=== PATIENT | male | born 1985 | race African-American/Black ===

== ENCOUNTER 2022-09-30 00:30 | Inpatient (IN) ==
[~2022-09-30 00:30] MED LIST: LIDOCAINE/EPINEPHRINE 1% 20 ML VIAL ONE
[2022-09-30] MEDS ORDERED: TRANEXAMIC ACID / 0.7% NACL 1000MG/100ML BAG IV ONE (00:38)
[2022-09-30] MEDS ORDERED: SODIUM CHLORIDE 0.9% 1000ML 1,000 ML IV ONE (00:41)
[2022-09-30] MEDS ORDERED: ONDANSETRON INJ 2 MG/ML 2 ML VIAL IV STA (00:55)
[2022-09-30] MEDS ORDERED: ceFAZolin 2000MG 2,000 MG/15 ML SYR IV STA (00:55)
[2022-09-30] MEDS ORDERED: ONDANSETRON INJ 2 MG/ML 2 ML VIAL ONE (00:56)
[2022-09-30 01:04] LABS: iSTAT Creatinine 1.3 mg/dl (0.6-1.3); iSTAT Hemoglobin 12.2 g/dl (14.0-18.0); iSTAT Ionized Calcium 1.05 mmol/l (1.12-1.32); iSTAT Potassium 4.3 mmol/L (3.3-5.0)
[2022-09-30 01:20] LABS: Hematocrit (blood only) 35.4 % (42.0-52.0); Hemoglobin 11.6 g/dl (14.0-18.0); Mean Corpuscular Hemoglobin 29.5 pg (25.0-34.0); Mean Corpuscular Hgb Conc 32.8 g/dL (32.0-36.0); Mean Corpuscular Volume 90.1 fL (80.0-100.0); Mean Platelet Volume 9.7 fL (9.4-12.4); Platelet Count 196 K/uL (130-400); RDW Coefficient of Variation 13.5 % (11.5-14.5); RDW Standard Deviation 44.4 fL (36.4-46.3); Red Blood Count 3.93 M/uL (4.70-6.10); White Blood Count 7.93 K/ul (4.8-10.8)
[2022-09-30] MEDS ORDERED: DIPHTHERIA/TETANUS/PERTUSSIS 0.5mL SYR/VIAL (Age 7+yrs) IM ONE (01:23)
--- NOTE | 2022-09-30 01:23 | Emergency Department Note ---
History of Present Illness General Chief complaint: Laceration/Cut (Suture/Dermabond) Stated complaint: Laceration L Radial Artery Time Seen by Provider: 09/30/22 00:41 History of Present Illness This 37-year-old male presents the ER complaining of laceration to his left wrist. This is a work-related injury. 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 Patient had copious arterial bleeding per EMS and a tourniquet was placed. Patient states he is healthy with no active medical problems. Unsure of last tetanus. No other injuries per patient. Home Medications Medication Instructions Recorded Confirmed Type No Known Home Medications 09/30/22 09/30/22 History Allergies Allergy/AdvReac Type Severity Reaction Status Date / Time No Known Allergies Allergy Verified 09/30/22 00:52 Past Med/Surg History Social History Smoking Status: Current every day smoker Tobacco Type: Cigarettes Feels Safe at Home: Yes Review of Systems A total of 10 systems reviewed and were otherwise negative Physical Exam Vital Signs Vital Signs - 24 hr 09/30/22 00:42 09/30/22 00:37 09/30/22 00:39 Temperature 36.6 C Temperature Source Oral Pulse Rate 88 64 60 Pulse Rate from SpO2 Sensor Respiratory Rate 15 22 Respiratory Effort / Characteristics Non-Labored Respiratory Depth Normal Blood Pressure 140/80 140/80 Blood Pressure Mean 100 100 Pulse Oximetry 100 93 Oxygen Delivery Method Room Air Room Air Sepsis Recent Fever Within 48 Hours No Sepsis New/Unexplained Change in Mental Status No Sepsis Action Taken by Nursing No Action Required 09/30/22 00:52 09/30/22 01:30 09/30/22 02:02 Temperature Temperature Source Pulse Rate 55 L 69 62 Pulse Rate from SpO2 Sensor Respiratory Rate 15 23 19 Respiratory Effort / Characteristics Respiratory Depth Blood Pressure 120/82 148/101 H 142/84 H Blood Pressure Mean 94 116 103 Pulse Oximetry 100 100 99 Oxygen Delivery Method Room Air Room Air Room Air Sepsis Recent Fever Within 48 Hours Sepsis New/Unexplained Change in Mental Status Sepsis Action Taken by Nursing 09/30/22 04:04 09/30/22 04:04 Temperature Temperature Source Pulse Rate Pulse Rate from SpO2 Sensor 79 Respiratory Rate Respiratory Effort / Characteristics Respiratory Depth Blood Pressure 121/72 Blood Pressure Mean 83 Pulse Oximetry 100 Oxygen Delivery Method Room Air Sepsis Recent Fever Within 48 Hours Sepsis New/Unexplained Change in Mental Status Sepsis Action Taken by Nursing VITALS: Vitals are noted on the nurse's note and reviewed by myself. Vital signs stable. GENERAL: Pleasant gentleman anxious appearing, in no acute distress, nondiaphoretic, well-developed well-nourished. SKIN: 1 cm laceration to the left wrist with arterial bleeding present and tourniquet was reapplied, the rest of the skin was without rashes, erythema, edema, or bruising. There is no tenting of the skin. Capillary reflex less than 2 seconds. HEAD: Normocephalic atraumatic. EARS: External auditory canals clear, EYES: Pupils equal round and reactive to light and accommodation. Conjunctivae without injection, sclerae without icterus. Extraocular movements intact. NOSE: Patent, turbinates without inflammation or discharge. MOUTH: Mucous membranes moist. Pharynx without erythema or exudate. Uvula midline. Airway patent. Tongue does not deviate. NECK: Supple without nuchal rigidity. No lymphadenopathy. No thyromegaly. Cervical spine is nontender. No JVD. HEART: Regular rate and rhythm LUNGS: Clear to auscultation bilaterally without wheezes, rales or rhonchi. No retractions or accessory muscle use. ABDOMEN: Positive bowel sounds x 4. Normal tympanic percussion. Soft, nontender, without masses or organomegaly. Kramer sign negative. No guarding or rebound tenderness. No CVA tenderness MUSCULOSKELETAL: No muscle atrophy, erythema, or edema noted. NEURO: Patient was alert and oriented to person place and time. Diminished sensation to the left hand as tourniquet is placed. Patient states he was able to feel his fingers prior to the tourniquet being placed by EMS and police. No focal neurological deficits. Course Administered Medications Discontinued Medications Diphtheria/Pertussis/Tetanus Vacc (Diphtheria/Tetanus/Pertussis 0.5ml Syr/Vial (Age 7+Yrs)) 0.5 ml IM .ONCE ONE Stop: 09/30/22 01:24 Last Admin: 09/30/22 01:49 Dose: 0.5 ml Documented By: LÓPEZ Fentanyl Citrate (Fentanyl Citrate Pf 100 Mcg/2 Ml Vial) 50 mcg IV NOW STA Stop: 09/30/22 01:29 Last Admin: 09/30/22 01:32 Dose: 50 mcg Documented By: LÓPEZ Sodium Chloride (Nss 1000ml) 1,000 mls @ 999 mls/hr IV .Q1H1M ONE Stop: 09/30/22 01:41 Last Infusion: 09/30/22 01:51 Dose: 0 mls/hr Documented By: Admin: 09/30/22 00:50 Dose: 999 mls/hr Documented By: LÓPEZ Cefazolin Sodium (Ancef 2000mg) 2,000 mg in 15 mls @ 3.75 mls/min IV NOW STA Stop: 09/30/22 00:58 Last Admin: 09/30/22 00:59 Dose: 3.75 mls/min Documented By: LÓPEZ Miscellaneous (Surgicel Absorb Hemostat 2in X 14in) 1 each TOP ONCE ONE Stop: 09/30/22 03:42 Last Admin: 09/30/22 03:42 Dose: 1 each Documented By: ANITHA Ondansetron HCl (Ondansetron Inj 2 Mg/Ml 2 Ml Vial) 4 mg IV NOW STA Stop: 09/30/22 00:56 Last Admin: 09/30/22 00:57 Dose: 4 mg Documented By: LÓPEZ Ondansetron HCl (Ondansetron Inj 2 Mg/Ml 2 Ml Vial) Confirm Administered Dose 4 mg .ROUTE .STK-MED ONE Stop: 09/30/22 00:57 Last Admin: 09/30/22 01:00 Dose: 4 mg Documented By: LÓPEZ Tranexamic Acid (Tranexamic Acid / 0.7% Nacl 1000mg/100ml Bag) Confirm Administered Dose 1,000 mg IV .STK-MED ONE Stop: 09/30/22 00:39 Last Admin: 09/30/22 00:38 Dose: 1,000 mg Documented By: LÓPEZ Critical Care Time Critical Care Time: Yes Total Critical Care Time: 35 I have personally spent 35 minutes of critical care time in the direct management of this patient. This includes bedside care, interpretation of diagnostic studies, and testing, discussion with consultants, patient, and family members, and other required patient management activities. This 35 minutes is in excess of all separately billable procedures. Medical Decision Making Medical Records Attestation: I reviewed the patient's medical records. Home Medications Current Medication List: was personally reviewed by me Laboratory Data Attestation: I reviewed the patient's lab results. 09/30/22 00:56 09/30/22 00:56 Lab Results 09/30/22 09/30/22 09/30/22 Range/Units 00:51 00:55 00:55 WBC (4.8-10.8) K/ul RBC (4.70-6.10) M/uL Hgb (14.0-18.0) g/dl POC Hgb 12.2 L (14.0-18.0) g/dl Hct (42.0-52.0) % POC Hct 36 L (42-52) % MCV (80.0-100.0) fL MCH (25.0-34.0) pg MCHC (32.0-36.0) g/dL RDW Std Deviation (36.4-46.3) fL RDW Coeff of Stephen (11.5-14.5) % Plt Count (130-400) K/uL MPV (9.4-12.4) fL Immature Gran % (Auto) % Neut % (Auto) % Lymph % (Auto) % Lucas % (Auto) % Eos % (Auto) % Baso % (Auto) % Neut # (Auto) (1.40-6.50) K/uL Lymph # (Auto) (1.2-3.4) K/uL Lucas # (Auto) (0.11-0.59) K/uL Eos # (Auto) (0-0.50) K/uL Baso # (Auto) (0-0.2) K/uL Immature Gran # (Auto) (0.01-0.20) K/uL RBC Morphology POC Sodium 140 (135-144) mmol/L Sodium (136-145) mmol/L POC Potassium 4.3 (3.3-5.0) mmol/L Potassium (3.5-5.1) mmol/L POC Chloride 106 (101-112) mmol/L Chloride (98-107) mmol/L Carbon Dioxide (21-32) mmol/L POC Total CO2 23 L (24-31) mmol/L Anion Gap (3-11) POC Anion Gap 17.0 (16-25) mmol/L POC BUN 21 H (7-18) mg/dl BUN (6-23) mg/dl Creatinine (0.6-1.4) mg/dl POC Creatinine 1.3 (0.6-1.3) mg/dl Est Cr Clr Drug Dosing ml/min Est GFR ( Amer) ml/min Est GFR (Non-Af Amer) ml/min BUN/Creatinine Ratio (10-20) Glucose (70-99(Fasting)) mg/dl POC Glucose (other) 111 H (70-99) mg/dl Calcium (8.6-10.3) mg/dl POC Ioniz Calcium Celina 1.05 L (1.12-1.32) mmol/l Total Bilirubin (0.2-1.0) mg/dl AST (13-39) U/L ALT (7-52) U/L Alkaline Phosphatase (34-104) U/L Total Protein (6.0-8.3) gm/dl Albumin (3.4-5.0) gm/dl Globulin (2.5-4.0) gm/dl Albumin/Globulin Ratio (0.9-2) SARS-CoV-2, RNA, NAAT NEGATIVE (NEGATIVE) Blood Type B Negative Antibody Screen NEGATIVE 09/30/22 09/30/22 Range/Units 00:56 00:56 WBC 7.93 (4.8-10.8) K/ul RBC 3.93 L (4.70-6.10) M/uL Hgb 11.6 L (14.0-18.0) g/dl POC Hgb (14.0-18.0) g/dl Hct 35.4 L (42.0-52.0) % POC Hct (42-52) % MCV 90.1 (80.0-100.0) fL MCH 29.5 (25.0-34.0) pg MCHC 32.8 (32.0-36.0) g/dL RDW Std Deviation 44.4 (36.4-46.3) fL RDW Coeff of Stephen 13.5 (11.5-14.5) % Plt Count 196 (130-400) K/uL MPV 9.7 (9.4-12.4) fL Immature Gran % (Auto) 0.3 % Neut % (Auto) 27.8 % Lymph % (Auto) 59.4 % Lucas % (Auto) 6.8 % Eos % (Auto) 4.3 % Baso % (Auto) 1.4 % Neut # (Auto) 2.21 (1.40-6.50) K/uL Lymph # (Auto) 4.71 H (1.2-3.4) K/uL Lucas # (Auto) 0.54 (0.11-0.59) K/uL Eos # (Auto) 0.34 (0-0.50) K/uL Baso # (Auto) 0.11 (0-0.2) K/uL Immature Gran # (Auto) 0.02 (0.01-0.20) K/uL RBC Morphology Unremarkable POC Sodium (135-144) mmol/L Sodium 139 (136-145) mmol/L POC Potassium (3.3-5.0) mmol/L Potassium 4.0 (3.5-5.1) mmol/L POC Chloride (101-112) mmol/L Chloride 108 H (98-107) mmol/L Carbon Dioxide 26 (21-32) mmol/L POC Total CO2 (24-31) mmol/L Anion Gap 5 (3-11) POC Anion Gap (16-25) mmol/L POC BUN (7-18) mg/dl BUN 19 (6-23) mg/dl Creatinine 1.30 (0.6-1.4) mg/dl POC Creatinine (0.6-1.3) mg/dl Est Cr Clr Drug Dosing 83.6 ml/min Est GFR ( Amer) 80.2 ml/min Est GFR (Non-Af Amer) 69.2 ml/min BUN/Creatinine Ratio 14.6 (10-20) Glucose 112 H (70-99(Fasting)) mg/dl POC Glucose (other) (70-99) mg/dl Calcium 7.9 L (8.6-10.3) mg/dl POC Ioniz Calcium Celina (1.12-1.32) mmol/l Total Bilirubin 0.3 (0.2-1.0) mg/dl AST 20 (13-39) U/L ALT 20 (7-52) U/L Alkaline Phosphatase 57 (34-104) U/L Total Protein 6.5 (6.0-8.3) gm/dl Albumin 3.6 (3.4-5.0) gm/dl Globulin 2.9 (2.5-4.0) gm/dl Albumin/Globulin Ratio 1.2 (0.9-2) SARS-CoV-2, RNA, NAAT (NEGATIVE) Blood Type Antibody Screen Imaging Data Attestation: I personally reviewed and interpreted this imaging study as follows: MDM Narrative Prior records reviewed and summarized as above. Triage Nursing notes reviewed. Additional history obtained from EMS. The patient's history was concerning for laceration to left wrist Differential diagnosis: Etiologies such as vascular injury, tendon injury, nerve injury, laceration, as well as others were entertained.. Physical examination: The physical examination was consistent with vascular injury to the left radial artery ER treatment provided: Tourniquet was replaced, 2 lines were placed, i-STAT H&H was ordered, patient was consented to blood and type and screen was ordered if warranted Tetanus is given. TXA was ordered. Ancef was ordered. IV fluids were given On reassessment the patient felt better. Diagnostics interpreted by me: The labs Independently Interpreted by myself revealed mild anemia, no worrisome leukocytosis, negative COVID Imaging studies: Wrist x-ray with no foreign body or fracture per my independent interpretation Consultation: A consultation was placed with the vascular specialist, Dr. Delaney. The case was discussed and diagnostics were reviewed. The patient was evaluated in the ER for further treatment. This appears to be isolated left radial artery injury. Tourniquet was placed. This was initially removed and radial pulse was present. Bright red blood was profusely coming out and tourniquet was replaced. Vascular was consulted and took the patient to the OR. Labs and diagnostics were independent interpreted by myself. Patient was taken to the OR by vascular for further evaluation and treatment in stable condition.By the evaluation outlined above emergent etiologies such as fracture as well as others were deemed relatively unlikely. The pt informed about the findings as listed above. All questions were answered and pleased with the treatment. The chart was completed utilizing [employer] Speech voice recognition software. Grammatical errors, random word insertions, pronoun errors, and incomplete sentences are an occassional consequence of this system due to software limitations, ambient noise, and hardware issues. Any formal questions or concerns about the content, text, or information contained within the body of this dictation should be directly addressed to the physician administrative assistant office manager for clarification. Impression & Plan Laceration of radial artery at left forearm level Discharge Plan Visit Data Chief Complaint: Laceration/Cut (Suture/Dermabond) Stated Complaint: Laceration L Radial Artery ED Provider: Hakeem Castorena ED Midlevel Provider: Velma Avila Discharge Problem: Laceration of radial artery at left forearm level Patient Disposition: Admitted As Inpatient Condition: Good Discharge Instructions Interventions: ED Discharge Assessment Last Done: 09/30/22 02:28 Laceration of radial artery at left forearm level Qualifiers: Encounter type: initial encounter Qualified Code(s): S55.112A - Laceration of radial artery at forearm level, left arm, initial encounter
[2022-09-30] MEDS ORDERED: fentaNYL citrate PF 100 MCG/2 ML VIAL IV STA (01:28)
[2022-09-30 01:30] LABS: Albumin Globulin Ratio 1.2 (0.9-2); Albumin Level 3.6 gm/dl (3.4-5.0); BUN Creatinine Ratio 14.6 (10-20); Bilirubin,Total 0.3 mg/dl (0.2-1.0); Calcium 7.9 mg/dl (8.6-10.3); Creatinine Clr Calc Pharmacy 83.6 ml/min; Est GFR (African American) 80.2 ml/min; Est GFR (Non-African American) 69.2 ml/min; Globulin 2.9 gm/dl (2.5-4.0); Total Protein 6.5 gm/dl (6.0-8.3)
--- NOTE | 2022-09-30 01:44 | History & Physical Report ---
Date of Service September 30, 2022 Assessment & Plan (1) Laceration of radial artery at left forearm level: Plan: Patient may have a laceration of his radial artery. Would recommend exploration due to the amount of bright red pulsatile bleeding at the scene. I have discussed the risks options and benefits of the procedure with the patient. The patient understands the risks options and benefits and agrees to the procedure. History of Present Illness Chief Complaint: Laceration left wrist Primary Care Provider: NO PCP Patient is a 37yo male who suffered a left wrist laceration with a box toe stitcher while at work. He had profuse bleeding which was said to be pulsatile at the scene. At present he has a tourniquet in place. He is usually healthy. Allergies Allergy/AdvReac Type Severity Reaction Status Date / Time No Known Allergies Allergy Verified 09/30/22 00:52 Home Medications Medication Instructions Recorded Confirmed Type No Known Home Medications 09/30/22 09/30/22 History Past Med/Surg History Social History Smoking Status: Current every day smoker Tobacco Type: Cigarettes Feels Safe at Home: Yes Review of Systems All systems reviewed & are unremarkable except as noted in HPI & below Physical Exam Constitutional: WD/WN, vitals as above Respiratory: normal respiratory effort, lungs clear to auscultation Cardiovascular: RRR, no murmur, no edema Vessels: normal peripheral pulses (except left wrist which has a tourniquet on.) left hand pale and cool to touch Gastrointestinal (Abdomen): normal bowel sounds, soft, nontender, no hepatosplenomegaly Musculoskeletal: all extremities are normal except the left which has a tourniquet on. Skin: pressure dressing on left wrist Neurologic: CN's II-XI intact bilaterally and moves all extremities left hand numbness and inability to move fingers Psychiatric: Orientation: alert and oriented x 3 Results & Data Vital Signs (Past 12 Hours) Vital Signs Temp Pulse Resp BP Pulse Ox O2 Del Method 09/30/22 00:52 55 L 15 120/82 100 Room Air 09/30/22 00:39 60 22 140/80 93 Room Air 09/30/22 00:37 64 09/30/22 00:42 36.6 C 88 15 140/80 100 Room Air
[2022-09-30 01:58] LABS: Basophils # (auto) 0.11 K/uL (0-0.2); Basophils % (auto) 1.4 %; Eosinophils # (auto) 0.34 K/uL (0-0.50); Eosinophils % (auto) 4.3 %; Immature Granulocytes # (auto) 0.02 K/uL (0.01-0.20); Immature Granulocytes % (auto) 0.3 %; Lymphocytes # (auto) 4.71 K/uL (1.2-3.4); Lymphocytes % (auto) 59.4 %; Monocytes # (auto) 0.54 K/uL (0.11-0.59); Monocytes % (auto) 6.8 %; Neutrophils # (auto) 2.21 K/uL (1.40-6.50); Neutrophils % (auto) 27.8 %; RBC Morphology Unremarkable
[2022-09-30] MEDS ORDERED: fentaNYL citrate PF 100 MCG/2 ML VIAL ONE (02:17)
[2022-09-30] MEDS ORDERED: PROPOFOL IV EMULSION 10 MG/ML 20 ML VIAL IV ONE (02:17)
[2022-09-30] MEDS ORDERED: MIDAZOLAM HCL 1 MG/ML 2ML VIAL ONE (02:17)
[2022-09-30] MEDS ORDERED: LIDOCAINE 2% MPF LOCAL 5 ML VIAL ONE (02:18)
--- NOTE | 2022-09-30 02:28 | Anesthesiology Consultation ---
Date of Service September 30, 2022 Assessment & Plan Chart Review Chart Review: Acceptable Risk for Surgery Consults Requested none History Surgery Operation Date: 09/30/22 02:30 Proposed Procedures p Left Radial Artery Exploration - Yasir Delaney MD Height/Weight Height: 5 ft 9 in Weight: 85.8 kg Allergies Allergy/AdvReac Type Severity Reaction Status Date / Time No Known Allergies Allergy Verified 09/30/22 00:52 Medications Home Medications Medication Instructions Recorded Confirmed Last Taken No Known Home Medications 09/30/22 09/30/22 Unknown Social History Smoking Status: Current every day smoker Physical Exam Vital Signs Last Vital Signs Temp 36.6 C 09/30/22 00:42 Pulse 62 09/30/22 02:02 Resp 19 09/30/22 02:02 BP 142/84 H 09/30/22 02:02 Pulse Ox 99 09/30/22 02:02 O2 Del Method Room Air 09/30/22 02:02 Testing Laboratory Results 09/30/22 00:56 09/30/22 00:56 Blood Type B Negative 09/30/22 00:55 Antibody Screen NEGATIVE 09/30/22 00:55 09/30/22 00:51 POC Glucose (other) 111 H
[2022-09-30] MEDS ORDERED: HYDROmorphone INJ 2 MG/ML SYR/VIAL IV PRN (02:37)
[2022-09-30] MEDS ORDERED: ePHEDrine sulfate 50 MG/ML AMP IV PRN (02:37)
[2022-09-30] MEDS ORDERED: ONDANSETRON INJ 2 MG/ML 2 ML VIAL IV PRN ×2 (02:37→05:26)
[2022-09-30] MEDS ORDERED: ATROPINE SULFATE 0.1 MG/ML 10ML SYR IV PRN (02:37)
[2022-09-30] MEDS ORDERED: fentaNYL citrate PF 100 MCG/2 ML VIAL IV PRN (02:37)
[2022-09-30] MEDS ORDERED: PROMETHAZINE HCL 12.5 MG in SODIUM CHLORIDE 0.9% 50 ML IV PRN (02:37)
[2022-09-30] MEDS ORDERED: SURGICEL ABSORB HEMOSTAT 2IN X 14IN TOP ONE (03:41)
[2022-09-30] MEDS ORDERED: GLYCOPYRROLATE 0.2 MG/ML VIAL ONE (03:42)
[2022-09-30] MEDS ORDERED: NEOSTIGMINE METHYLSULFATE 1 MG/ML 10ML VIAL ONE (03:42)
--- NOTE | 2022-09-30 03:57 | Operative Report ---
Post Operative Report Pre & Post Diagnosis Operation Date: 09/30/22 02:30 Pre-Op Diagnosis: Laceration Left Radial Artery Post-Op Diagnosis: Laceration Left Radial Artery I identified the patient and participated in the time-out.: Yes Procedure Operation Date: 09/30/22 02:30 Actual Procedures p Primary Repair Left Radial Artery(Left) - Yasir Delaney MD Surgeon Yasir Delaney MD Nurse Midwife/Clinical Instructor none Estimated Blood Loss 20 Findings Consistent with Post-Op Diagnosis Specimens none Anesthesia Type General Complications none Disposition Accompanied Patient To Recovery: No Disposition: Recovery Room Indications This is a 37-year-old healthy gentleman who 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 It was thought that he lacerated his radial artery. Exploration was recommended with repair of the artery if needed. I have discussed the risks options and benefits of the procedure with the patient. The patient understands the risks options and benefits and agrees to the procedure. Description of Procedure The patient was taken the operating placed supine position. After general anesthesia was accomplished the left arm was prepped and draped in a sterile manner. After he was asleep we did release the tourniquet and there was pulsatile profuse bleeding. A tourniquet was reapplied. The patient was identified and a timeout was performed. The box worker laceration was small and longitudinal. It was extended upward and downward right over the radial artery. Radial artery was exposed. There is a through and through laceration through the center of the radial artery. It was a very clean cut approximately 3 mm in length. Both the anterior and posterior surface of the artery were repaired with interrupted 7-0 Prolene sutures. There was good flow noted after the repair. Good Doppler signals were heard on both sides of the repair of the artery. There is also an excellent palmar arch Doppler signal. The wound was inspected. Adequate hemostasis was noted. The wound was then closed with running 3-0 Vicryl suture for the subcutaneous layer and a running 4-0 subcuticular suture for the skin edges. Dermabond was used for dressing.The patient left the operation room in satisfactory condition and tolerated the procedure well. All needle and sponge counts were correct at the end of the procedure. I attest to the content of the Intraoperative Record and any orders documented therein. Any exceptions are noted below.
--- NOTE | 2022-09-30 04:18 | Anesthesiology Progress Note ---
Date of Service September 30, 2022 Anesthesia Post Procedure Vital Signs Vital Signs: Temp Pulse Resp BP Pulse Ox O2 Del Method 09/30/22 04:15 100 09/30/22 04:15 115/85 09/30/22 04:10 36.3 C L 64 15 100 Room Air 09/30/22 04:10 116/69 09/30/22 04:04 100 Room Air 09/30/22 04:04 121/72 09/30/22 02:02 62 19 142/84 H 99 Room Air 09/30/22 01:30 69 23 148/101 H 100 Room Air 09/30/22 00:52 55 L 15 120/82 100 Room Air 09/30/22 00:39 60 22 140/80 93 Room Air 09/30/22 00:37 64 09/30/22 00:42 36.6 C 88 15 140/80 100 Room Air Transfer of Care Handoff Completed per policy Notes Mental Status: alert / awake / arousable and participated in evaluation Patient Amnestic to Procedure: Yes Nausea / Vomiting: adequately controlled Pain: adequately controlled Airway Patency, RR, SpO2: stable & adequate BP & HR: stable & adequate Hydration State: stable & adequate Anesthetic Complications: no major complications apparent
[2022-09-30] MEDS ORDERED: traMADol HCL 50 MG TABLET PO PRN (05:26)
[2022-09-30] MEDS ORDERED: LACTATED RINGER'S 1,000 ML IV SCH (05:26)
[2022-09-30] MEDS ORDERED: Nursing to Pharmacy Communication SCH (06:00)
--- NOTE | 2022-09-30 07:02 | XRay Report ---
XR wrist LT 2V HISTORY: 37 years-old Male radial artery injury acute left wrist pain status post trauma COMPARISON: None TECHNIQUE: 2 views of the left wrist FINDINGS: Mild to moderate soft tissue swelling of the distal forearm with gauze material noted along the volar surface. No acute fracture, dislocation, significant osteoarthritis, osseous erosion or opaque forei gn body. IMPRESSION: Soft tissue injury without acute osseous abnormality. ACT 112: Negative or not required by law. The above report was generated using voice recognition software. It may contain grammatical, syntax o r spelling errors. Electronically signed by: Fortunato Echavarria M.D. 09/30/2022 7:00 AM
[2022-09-30] MEDS ORDERED: ceFAZolin 2000MG 2,000 MG/15 ML SYR IV SCH (08:00)
--- NOTE | 2022-09-30 10:11 | Surgery Progress Note ---
Date of Service September 30, 2022 Assessment & Plan (1) Laceration of radial artery at left forearm level: Plan: Pt underwent primary repair of L radial artery. No further sign of bleeding. Unfortunately, pt had a tourniquet on his forearm for a few hrs prior to und ergoing surgery and now has a soft tissue injury as well which is painful. Mild soft edema is noted to forearm. No sign of compartment syndrome, and distal pulses remain intact. Pt stable for d/c and will be reeval in office in 2 weeks. 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 Pt states his L forearm is very sore, but more from the location of the tourniquet than the incision. States the feeling has returned to his hand and fingers and no problems moving them. Admits some swelling and bruising to L forearm from tourniquet location to wrist. Review of Systems Review of Systems: All systems reviewed & are unremarkable except as noted in HPI & below Physical Exam Constitutional: WD/WN, vitals as above Respiratory: normal respiratory effort, lungs clear to auscultation Cardiovascular: RRR, no murmur, no edema Vessels: brachial pulses present, radial pulses present and ulnar pulses present Extremities: normal capillary refill and + edema (mild soft edema/ecchymosis to L forearm) Gastrointestinal (Abdomen): normal bowel sounds, soft, nontender, no hepatosplenomegaly Skin: L wrist incision C/D/I, +tender Neurologic: CN's II-XI intact bilaterally and moves all extremities Psychiatric: Orientation: alert and oriented x 3 Results & Data Vital Signs (Past 12 Hours) Vital Signs Temp Pulse Pulse Pulse Resp BP BP 09/30/22 08:21 79 18 117/87 09/30/22 07:17 36.6 C 55 L 14 128/80 09/30/22 06:16 36.8 C 62 17 122/77 09/30/22 05:45 36.6 C 61 18 130/83 09/30/22 05:25 36.7 C 63 18 128/77 09/30/22 05:00 48 L 14 09/30/22 05:00 130/91 09/30/22 04:50 49 L 15 09/30/22 04:40 63 15 09/30/22 04:40 148/89 H 09/30/22 05:06 36.3 C L 56 L 14 130/91 09/30/22 04:35 36.4 C L 53 L 16 09/30/22 04:35 125/82 09/30/22 04:30 62 14 09/30/22 04:30 134/85 09/30/22 04:26 36.4 C L 134/87 09/30/22 04:26 49 L 20 09/30/22 04:20 88 14 09/30/22 04:20 121/82 09/30/22 04:15 09/30/22 04:15 115/85 09/30/22 04:10 36.3 C L 64 15 09/30/22 04:10 116/69 09/30/22 04:04 09/30/22 04:04 121/72 09/30/22 02:02 62 19 142/84 H 09/30/22 01:30 69 23 148/101 H 09/30/22 00:52 55 L 15 120/82 09/30/22 00:39 60 22 140/80 09/30/22 00:37 64 09/30/22 00:42 36.6 C 88 15 140/80 Pulse Ox O2 Del Method 09/30/22 08:21 99 Room Air 09/30/22 07:17 99 Room Air 09/30/22 06:16 99 Room Air 09/30/22 05:45 100 Room Air 09/30/22 05:25 98 Room Air 09/30/22 05:00 100 09/30/22 05:00 09/30/22 04:50 100 09/30/22 04:40 99 09/30/22 04:40 09/30/22 05:06 99 Room Air 09/30/22 04:35 100 Room Air 09/30/22 04:35 09/30/22 04:30 98 09/30/22 04:30 09/30/22 04:26 09/30/22 04:26 98 Room Air 09/30/22 04:20 97 09/30/22 04:20 09/30/22 04:15 100 09/30/22 04:15 09/30/22 04:10 100 Room Air 09/30/22 04:10 09/30/22 04:04 100 Room Air 09/30/22 04:04 09/30/22 02:02 99 Room Air 09/30/22 01:30 100 Room Air 09/30/22 00:52 100 Room Air 09/30/22 00:39 93 Room Air 09/30/22 00:37 09/30/22 00:42 100 Room Air (1) Laceration of radial artery at left forearm level Encounter type: initial encounter Qualified Code(s): S55.112A - Laceration of radial artery at forearm level, left arm, initial encounter
--- NOTE | 2022-10-07 10:47 | Discharge Summary ---
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 He had profuse bleeding which was said to be pulsatile at the scene. At present he has a tourniquet in place. He is usually healthy. Admission Exam Per Admitting Provider Constitutional: WD/WN, vitals as above Respiratory: normal respiratory effort, lungs clear to auscultation Cardiovascular: RRR, no murmur, no edema Vessels: normal peripheral pulses (except left wrist which has a tourniquet on.) left hand pale and cool to touch Gastrointestinal (Abdomen): normal bowel sounds, soft, nontender, no hepatosplenomegaly Musculoskeletal: all extremities are normal except the left which has a tourniquet on. Skin: pressure dressing on left wrist Neurologic: CN's II-XI intact bilaterally and moves all extremities left hand numbness and inability to move fingers Psychiatric: Orientation: alert and oriented x 3 Principal Diagnosis Lacerated left radial artery Discharge Exam Constitutional WD/WN, vitals as above Respiratory normal respiratory effort, lungs clear to auscultation Cardiovascular RRR, no murmur, no edema Vessels: normal peripheral pulses (except left wrist which has a tourniquet on.) Gastrointestinal (Abdomen) normal bowel sounds, soft, nontender, no hepatosplenomegaly Neurologic CN's II-XI intact bilaterally and moves all extremities Psychiatric Orientation: alert and oriented x 3 Discharge Data Allergies Allergy/AdvReac Type Severity Reaction Status Date / Time No Known Allergies Allergy Verified 09/30/22 00:52 Procedures Performed Operation Date: 09/30/22 02:30 Actual Procedures p Primary Repair Left Radial Artery(Left) - Yasir Delaney MD Hospital Course (1) Laceration of radial artery at left forearm level: Pt underwent primary repair of L radial artery. No further sign of bleeding. Unfortunately, pt had a tourniquet on his forearm for a few hrs prior to undergoing surgery and now has a soft tissue injury as well which is painful. Mild soft edema is noted to forearm. No sign of compartment syndrome, and distal pulses remain intact. Pt stable for d/c and will be reeval in office in 2 weeks. Total Time Total Time Spent Total Time Spent (In Minutes): 0 Discharge Plan Discharge Items Patient Disposition: Home - Self-Care Reason For Visit: Laceration Left Radial Artery Discharge Diagnosis: 1. s/p repair of L radial artery 2. Laceration of L radial artery Condition on Discharge: Good Activity: Per Instructions section Non-emergency contact: Primary Care Provider and Surgeon Call non-emergency contact if: you have any medication questions, your pain is not controlled, your pain is concerning for you, you have a fever, your wound has increased redness and your wound has increased drainage Follow-up/Referrals: Yasir Delaney MD [Physician] - (Follow up with Dr Delaney or Carline Santillan PA-C in 2 weeks. ) PCP,NO [Primary Care Provider] - Diet: Regular Addtl Attending Provider Instructions: ACTIVITY RECOMMENDATIONS: 1. May shower/wash hands, but DO NOT SOAK YOUR WOUND IN WATER 2. Elevate Left arm on pillows when at rest. 3. DO NOT LIFT MORE THAN 10 lbs x 2 weeks. Other activities as tolerated. 4. CALL Dr Delaney's office at [phone] for follow up appt. SPECIAL CARE INSTRUCTIONS: Call your doctor if: * Temperature above 101 degrees * Pain not relieved by pain medicine ordered * There is increased drainage or redness from any incision * You have any unanswered questions or concerns. Pending Studies at Discharge: No Stand-Alone Forms: [employer], Pain - Opioid Pain Management, Smoking Cessation Medications and DC Order Prescriptions: New oxycodone-acetaminophen [Percocet] 5-325 mg tablet 1 tab PO Q6H PRN (Reason: pain) Qty: 20 0RF Discharge Orders: Discharge Order (Routine); Ordered 09/30/22 Ordered By: Carline Rose/Other Patient Handouts: ED Laceration, Extremity: Skin Glue, ED Laceration Extremity Admission Data Admit Date/Time: 09/30/22 02:29 Attending Provider: Yasir Delaney Admit Provider: Yasir Delaney Primary Care Provider: PCP,NO Other Interventions: Discharge Summary Assessment (RN) Last Done: 09/30/22 10:09
== END 2022-09-30 11:11 | disposition home or self-care (01) | DRG 909 ==
LOC: ED 00:30 → OR 02:28 → 3W 02:29